=== PATIENT | female | born 1990 | race Caucasian/White ===

== ENCOUNTER 2016-06-23 15:23 | Emergency (ER) | payer SELFPAY ==
[2016-06-23 15:42] VITALS: BP 120/86
--- NOTE | 2016-06-23 16:02 | UC ---
Throat Pain/Nasal Rob HPI - HPI Summary HPI Summary: 3 days of sore throat and loss of voice no fevers - History of Current Complaint Chief Complaint: UCRespiratory Stated Complaint: SORE THROAT Time Seen by Provider: 06/23/16 15:53 Hx Obtained From: Patient Hx Last Menstrual Period: 3 WEEKS AGO ?: No Onset/Duration: Sudden Onset, Lasting Days - 3, Still Present Severity: Moderate Pain Intensity: 6 Pain Scale Used: 0-10 Numeric Cough: Nonproductive Associated Signs & Symptoms: Positive: Hoarseness - Allergies/Home Medications Allergies/Adverse Reactions: Allergies Allergy/AdvReac Type Severity Reaction Status Date / Time Adhesive Tape Allergy Severe Rash Verified 06/23/16 15:42 Home Medications: Home Medications Cholecalciferol TAB* [Vitamin D TAB*] 1,000 unit PO DAILY 06/23/16 [History Confirmed 06/23/16] Coenzyme Q10 (Ubidecarenone) [Coenzyme Q-10] 150 mg PO BID 06/23/16 [History Confirmed 06/23/16] FLUoxetine CAP* [PROzac CAP*] 40 mg PO DAILY 06/23/16 [History Confirmed ] Magnesium Gluconate (Bulk) [Magnesium Gluconate] 400 mg PO DAILY 06/23/16 [ History Confirmed 06/23/16] SUMAtriptan TAB* [Imitrex TAB*] 100 mg PO SEE INSTRUCTIONS PRN 06/23/16 [ History Confirmed 06/23/16] PMH/Surg Hx/FS Hx/Imm Hx Previously Healthy: No Psychological History Of: Reports: Depression - Surgical History Surgical History: None - Family History Known Family History: Positive: None Family History: no reported cardiovascular issues in family lineage - Social History Occupation: Unemployed Lives: With Family Alcohol Use: Rare Substance Use Type: None Smoking Status (MU): Never Smoked Tobacco Review of Systems Constitutional: Negative Skin: Negative Eyes: Negative ENT: Sore Throat Respiratory: Cough Cardiovascular: Negative Gastrointestinal: Negative Genitourinary: Negative Motor: Negative Neurovascular: Negative Musculoskeletal: Negative Neurological: Negative Psychological: Negative All Other Systems Reviewed And Are Negative: Yes Physical Exam Triage Information Reviewed: Yes Appearance: No Pain Distress, Well-Nourished, Ill-Appearing - mild Vital Signs: Initial Vital Signs Temp 98.6 F 06/23/16 15:39 Pulse 87 06/23/16 15:39 Resp 16 06/23/16 15:39 BP 120/86 06/23/16 15:39 Pulse Ox 98 06/23/16 15:39 Vital Signs Reviewed: Yes Eye Exam: Normal Eyes: Positive: Conjunctiva Clear ENT Exam: Normal ENT: Positive: Normal ENT inspection, Hearing grossly normal, Pharynx normal, TMs normal, Muffled/hoarse voice. Negative: Nasal congestion, Nasal drainage, Tonsillar swelling, Tonsillar exudate, Trismus Dental Exam: Normal Neck exam: Normal Neck: Positive: Supple, Nontender, No Lymphadenopathy Respiratory Exam: Normal Respiratory: Positive: Chest non-tender, Lungs clear, Normal breath sounds, No respiratory distress, No accessory muscle use Cardiovascular Exam: Normal Cardiovascular: Positive: RRR, No Murmur, Pulses Normal, Brisk Capillary Refill Musculoskeletal Exam: Normal Musculoskeletal: Positive: Strength Intact, ROM Intact, No Edema Neurological Exam: Normal Neurological: Positive: Alert, Muscle Tone Normal Psychological Exam: Normal Skin Exam: Normal Diagnostics - Laboratory Diagnostic Studies Completed/Ordered: RST(-) Throat Pain/Nasal Course/Dx - Course Assessment/Plan: prednisone, increase fluids, otc topical medications for comfort follow with pcp recheck prn - Differential Dx/Diagnosis Differential Diagnosis/HQI/PQRI: Influenza, Laryngitis, Peritonsillar Abscess, Pharyngitis, URI Provider Diagnoses: Laryngitis Discharge - Discharge Plan Condition: Stable Disposition: HOME Prescriptions: predniSONE TAB* [Deltasone TAB*] 50 mg PO DAILY #3 tab Patient Education Materials: Prednisone (By mouth), Laryngitis (ED) Referrals: [facility] [Outside] - If Needed
== END 2016-06-23 16:23 | disposition home or self-care (01) ==
LOC: UCEAST 15:23
DX: J04.0 Acute laryngitis (principal)
CPT/HCPCS: 87651; 99212; G0463

== ENCOUNTER 2016-08-02 19:23 | Emergency (ER) | payer MEDICAID ==
[2016-08-02 19:34] VITALS: BP 128/69
[2016-08-02] MEDS ORDERED: Lidocaine 2% VISCOUS* 15 ML UDC SWISH SPIT ONE ×2 (19:57→20:10)
--- NOTE | 2016-08-02 20:37 | RAD ---
INDICATION: Evaluate for foreign body. COMPARISON: There are no prior studies available for comparison. TECHNIQUE: A CT scan of the neck was performed without intravenous contrast. Contiguous axial sections were obtained from the skull base through the lung apices. Images were reconstructed in the coronal and sagittal planes. The study is limited without contrast. FINDINGS: The airway is patent. The epiglottis and aryepiglottic folds appear within normal limits. No retropharyngeal soft tissue swelling is noted. No significant enlarged nodes are seen. No radiopaque foreign body is seen. The parotid and submandibular glands appear to be within normal limits. The thyroid gland appears normal. The lung apices appear clear. There is residual thymus tissue present within the anterior mediastinum. The paranasal sinuses and mastoid air cells appear clear. There is straightening and reversal of the normal cervical lordosis. No significant focal osseous abnormality is seen. IMPRESSION: NO RADIOPAQUE FOREIGN BODY IS SEEN.
--- NOTE | 2016-08-02 21:11 | ED ---
Steven Muñoz Billy, scribed for Oc Balderas MD on 08/02/16 at 2001 . Throat Pain/Nasal Congestion - HPI Summary HPI Summary: Patient is a 26 year-old female coming to [facility] for evaluation of FB sensation in her throat. She states that she was taking her daily medication of 4 pills when a Prozac pill "exploded in her throat." Since then, she has felt a burning sensation. She states that she was able to spit the Prozac shell out but is concerned that one of the other 3 pills remains lodged in her throat. Denies any difficulty breathing and is able to comfortably drink water. However, she states that she has been coughing constantly since the incident. - History of Current Complaint Chief Complaint: EDForeignBodyEsophag Time Seen by Provider: 08/02/16 19:50 Hx Obtained From: Patient Onset/Duration: Sudden Onset, Still Present Severity: Moderate Associated Signs And Symptoms: Positive: FB Sensation Cough: Nonproductive - Allergies/Home Medications Allergies/Adverse Reactions: Allergies Allergy/AdvReac Type Severity Reaction Status Date / Time Adhesive Tape Allergy Severe Rash Verified 06/23/16 15:42 PMH/Surg Hx/FS Hx/Imm Hx Endocrine/Hematology History: Denies: Hx Diabetes Cardiovascular History: Denies: Hx Hypertension Neurological History: Reports: Hx Migraine Psychiatric History: Reports: Hx Depression Infectious Disease History: No Infectious Disease History: Denies: Traveled Outside the [place] in Last 30 Days - Family History Known Family History: Positive: Cardiac Disease, Diabetes, Other - cancer (skin , colon), depression - Social History Alcohol Use: Rare Substance Use Type: Reports: None Smoking Status (MU): Never Smoked Tobacco Review of Systems Negative: Fever Positive: Other - FB sensation throat, "burning" Positive: Cough All Other Systems Reviewed And Are Negative: Yes Physical Exam - Summary Physical Exam Summary: VITAL SIGNS: Reviewed. GENERAL: Patient is a well developed and nourished female who is lying comfortable in the stretcher. Patient is not in any acute respiratory distress. HEAD AND FACE: No signs of trauma. No ecchymosis, hematomas or skull depressions. No sinus tenderness. EYES: PERRLA, EOMI x 2, No injected conjunctiva, no nystagmus. No photophobia. EARS: Hearing grossly intact. Ear canals and tympanic membranes are within normal limits. MOUTH: Oropharynx within normal limits. No foreing bodies in the pharynx noted. No erythema, no exudate. NECK: Supple, trachea is midline, no adenopathy, no JVD, no carotid bruit, no c- spine tenderness, neck with full ROM. No meningeal signs, no Kernig's or brudzinskis signs. CHEST: Symmetric, no tenderness at palpation LUNGS: Clear to auscultation bilaterally. No wheezing or crackles. CVS: Regular rate and rhythm, S1 and S2 present, no murmurs or gallops appreciated. ABDOMEN: Soft, non-tender. No signs of distention. No rebound no guarding, and no masses palpated. Bowel sounds are normal. EXTREMITIES: FROM in all major joints, no edema, no cyanosis or clubbing. NEURO: Alert and oriented x 3. No acute neurological deficits. Speech is normal and follows commands. SKIN: Dry and warm Triage Information Reviewed: Yes Vital Signs On Initial Exam: Initial Vitals Temp Pulse Resp BP Pulse Ox 98.2 F 92 16 128/69 99 08/02/16 19:30 08/02/16 19:30 08/02/16 19:30 08/02/16 19:30 08/02/16 19:30 Vital Signs Reviewed: Yes - [place] Coma Scale Coma Scale Total: 15 Diagnostics - Vital Signs Vital Signs Temp Pulse Resp BP Pulse Ox 08/02/16 19:30 98.2 F 92 16 128/69 99 - Laboratory Lab Statement: Any lab studies that have been ordered have been reviewed, and results considered in the medical decision making process. - CT neck CT Interpretation: No Acute Changes CT Interpretation Completed By: Radiologist Re-Evaluation - Re-Evaluation First Eval Re-Evaluation Time: 21:03 Change: Improved EENT Course/Dx - Course Assessment/Plan: Patient is a 26 year-old female coming to [facility] for evaluation of FB sensation in her throat. She states that she was taking her daily medication of 4 pills when a Prozac pill "exploded in her throat." Since then, she has felt a burning sensation. She states that she was able to spit the Prozac shell out but is concerned that one of the other 3 pills remains lodged in her throat. Denies any difficulty breathing and is able to comfortably drink water. However, she states that she has been coughing constantly since the incident. She is not drooling, not having nausea or vomiting, but the cough persists. Neck CT soft tissues show no foreign body. In the ED course, pt was given viscous lidocaine with improvement. Patient will be discharged to follow up with ENT in the next few days. Patient was instructed to return with difficulty swallowing, SOB, fevers, chills, increased pain. She undrestands and agrees. A&Ox3, hemodynamically stable. - Differential Diagnoses Differential Diagnoses: Cellulitis, Foreign Body, Laryngitis, Other - Diagnoses Provider Diagnoses: LARYNX and vocal cords irritation. Discharge - Discharge Plan Condition: Stable Disposition: HOME Patient Education Materials: Esophageal Foreign Body (ED) Referrals: [facility] [Outside] Roderick Alexis MD [Medical Doctor] - The documentation as recorded by the Steven fraser Billy accurately reflects the service I personally performed and the decisions made by me, Oc Balderas MD.
== END 2016-08-02 21:57 | disposition home or self-care (01) ==
LOC: ED 19:23
DX: R07.0 Pain in throat (principal)
CPT/HCPCS: 70490; 99282